=== PATIENT | female | born 1990 | race Caucasian/White ===

== ENCOUNTER 2018-04-03 22:56 | Inpatient (IN) | END 2018-04-05 10:45 | disposition home or self-care (01) | DRG 781 ==

== ENCOUNTER 2018-05-02 11:25 | Outpatient (CLI) | END 2018-05-02 13:34 | disposition home or self-care (01) ==

== ENCOUNTER 2018-05-05 16:49 | Inpatient (IN) | END 2018-05-08 18:20 | disposition home or self-care (01) | DRG 775 ==

== ENCOUNTER 2018-09-19 10:13 | Day surgery (SDC) | END 2018-09-19 15:40 | disposition home or self-care (01) ==